=== PATIENT | female | born 1975 | race Two or more races ===

== ENCOUNTER 2019-06-25 18:10 | Emergency (ER) | payer OTHER ==
[~2019-06-25] VITALS: Ht 154.9 cm; Wt 61.2 kg
== END 2019-06-25 20:53 | disposition home or self-care (01) ==
LOC: ER 18:10
DX: S90.32XA Contusion of left foot, initial encounter (principal); W22.8XXA Striking against or struck by other objects, initial encounter; Y93.89 Activity, other specified; Y92.89 Other specified places as the place of occurrence of the external cause; Y99.8 Other external cause status